=== PATIENT | male | born 1985 | race Asian ===

== ENCOUNTER 2017-07-23 19:46 | Emergency (ER) | payer MEDICAID ==
[2017-07-23] MEDS: ONDANSETRON 4 MG INJ IV (20:45)
[2017-07-23] MEDS: SOD CHLORIDE 0.9% 1,000 ML IV (20:45)
[2017-07-23] MEDS: morphine 4 MG/ML VIAL IV (20:45)
[2017-07-23 20:49] LABS: ADD MAN DIFF? NO
[2017-07-23 20:52] LABS: BASOPHILS % 0.3 % (0.0-2.0); EOSINOPHILS # 0.1 10^3/ul (0.0-0.5); HEMATOCRIT 36.4 % (42.0-52.0); HEMOGLOBIN 12.1 g/dl (14.0-18.0); LYMPHOCYTES # 1.4 10^3/ul (0.8-2.9); LYMPHOCYTES % 12.3 % (15.0-51.0); MEAN CORPUSCULAR HEMOGLOBIN 31.5 pg (29.0-33.0); MEAN CORPUSCULAR HGB CONC 33.2 g/dl (32.0-37.0); MEAN CORPUSCULAR VOLUME 94.8 fl (82.0-101.0); MEAN PLATELET VOLUME 10.6 fl (7.4-10.4); MONOCYTE # 1.4 10^3/ul (0.3-0.9); MONOCYTES % 12.4 % (0.0-11.0); NEUTROPHIL # 8.1 10^3/ul (1.6-7.5); NEUTROPHILS % 73.6 % (39.0-77.0); PLATELET COUNT 210 10^3/UL (140-415); RED BLOOD COUNT 3.84 10^6/ul (4.70-6.10); RED CELL DISTRIBUTION WIDTH 13.8 % (11.5-14.5)
[2017-07-23 21:07] LABS: INR 0.93; PROTIME 12.6 Sec (11.9-14.9)
[2017-07-23 21:08] LABS: PARTIAL THROMBOPLASTIN TIME 34.8 Sec (25.0-35.0)
[2017-07-23 21:09] LABS: ALANINE AMINOTRANSFERASE 29 IU/L (13-69); ALBUMIN 4.4 g/dl (3.3-4.9); ALBUMIN/GLOBULIN RATIO 1.33; ALKALINE PHOSPHATASE 59 IU/L (42-121); ANION GAP 18 (8-16); ASPARTATE AMINO TRANSFERASE 46 IU/L (15-46); BILIRUBIN,INDIRECT 0.3 mg/dl (0-1.1); BILIRUBIN,TOTAL 0.3 mg/dl (0.2-1.3); BLOOD UREA NITROGEN 12 mg/dl (7-20); CARBON DIOXIDE 29 mmol/L (21-31); CHLORIDE 99 mmol/L (97-110); CREATININE 0.91 mg/dl (0.61-1.24); GLUCOSE 102 mg/dl (70-220); LIPASE 48 U/L (23-300); POTASSIUM 3.9 mmol/L (3.5-5.1); SODIUM 142 mmol/L (135-144); TOTAL PROTEIN 7.7 g/dl (6.1-8.1)
[2017-07-23 21:20] LABS: TROPONIN-I < 0.012 ng/ml (0.00-0.12)
[2017-07-23] MEDS: IOHEXOL 300MG/ML 150 ML BTL (22:27)
[2017-07-23] MEDS: SOD CHLORIDE 0.9% 100 ML (22:27)
== END 2017-07-24 00:36 | disposition home or self-care (01) ==
LOC: E/R 07-24 00:36 → FTE 19:46
DX: S31.109A Unspecified open wound of abdominal wall, unspecified quadrant without penetration into peritoneal cavity, initial encounter (principal); S31.829A Unspecified open wound of left buttock, initial encounter; F17.210 Nicotine dependence, cigarettes, uncomplicated; R51 Headache; W34.00XA Accidental discharge from unspecified firearms or gun, initial encounter; Y92.9 Unspecified place or not applicable
CPT/HCPCS: 36415; 70450; 74177; 80053; 83690; 84484; 85025; 85610; 85730; 96374; 96375; 99291-25